=== PATIENT | male | born 1965 | race Caucasian/White ===

== ENCOUNTER 2025-05-06 06:57 | Day surgery (SDC) | payer MEDICAID ==
--- NOTE | 2025-05-01 10:56 | ELECTROCARDIOGRAPH REPORT ---
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 Kelton Ley Measurements Intervals [place] Rate: 79 P: 87 [place]: 184 QRS: 102 QRSD: 101 T: 59 QT: 374 QTc: 429 Interpretive Statements Sinus rhythm Right axis deviation Electronically Signed On 05-02-2025 6:01:[address] Kelton Ley Please click the below link to view image of tracing.
[2025-05-01 11:18] LABS: BASOPHILS # (AUTO) 0.1 X10'3 (0-0.2); BASOPHILS % (AUTO) 1.2 % (0-1); EOSINOPHILS # (AUTO) 0.2 X10'3 (0-0.9); EOSINOPHILS % (AUTO) 1.9 % (0-6); LYMPHOCYTES # (AUTO) 1.2 X10'3 (1.1-4.8); LYMPHOCYTES % (AUTO) 14.1 % (21-51); MEAN CORPUSCULAR HEMOGLOBIN 30.5 PG (27.0-31.0); MEAN CORPUSCULAR HGB CONC 34.6 g/dL (33.0-36.5); MEAN PLATELET VOLUME 8.6 FL (7.4-10.4); MONOCYTES # (AUTO) 0.5 X10'3 (0-0.9); MONOCYTES % (AUTO) 5.7 % (2-12); NEUTROPHILS # (AUTO) 6.6 X10'3 (1.8-7.7); NEUTROPHILS % (AUTO) 77.1 % (42-75); PRE OP HEMATOCRIT 49.5 % (42.0-52.0); PRE OP HEMOGLOBIN 17.1 g/dL (14.0-17.9); PRE OP PLATELET COUNT 203 X10'3 (140-440); PRE OP WHITE BLOOD COUNT 8.5 10'3 (4.8-10.8); RED BLOOD COUNT 5.63 X10'6 (4.70-6.10); RED CELL DISTRIBUTION WIDTH 14.5 % (11.5-14.5)
[2025-05-01 11:33] LABS: ALBUMIN 3.9 G/DL (3.4-5.0); ALKALINE PHOSPHATASE 87 IU/L (46-116); BLOOD UREA NITROGEN 12 MG/DL (7-18); BUN/CREATININE RATIO 9.8 (10.0-20.0); CALCIUM 8.8 MG/DL (8.5-10.1); CREATININE 1.23 MG/DL (0.60-1.10); PRE OP ALT 24 U/L (30-65); PRE OP AST 23 U/L (10-37); PRE OP BILIRUB, TOTAL 0.4 MG/DL (0.0-1.0); PRE OP GLUCOSE 159 MG/DL (70-104); PRE OP SODIUM 136 MMOL/L (135-145); TOTAL CARBON DIOXIDE 25.1 MMOL/L (24-32); TOTAL PROTEIN 7.7 G/DL (6.4-8.2); eGFR 60 ML/MIN
[2025-05-01 11:48] LABS: CHLORIDE 101 MMOL/L (99-107); PRE OP ANION GAP 10 (8-16); PRE OP POTASSIUM 3.9 MMOL/L (3.4-5.1)
[2025-05-06] VITALS (7 sets, daily range): BP systolic 81–146; BP diastolic 46–63; PULSE 70–82; RESP 11–17; TEMP 98.4; O2SAT 94–97
[~2025-05-06] VITALS: Ht 177.8 cm; Wt 114.0 kg
[~2025-05-06 06:57] MED LIST: EMPA25TA PO; FLUT16SP26 NAS; HYDR50TA4 PO; IBUP-1985 PO; INSU100V49 SQ; LANTUS SUBCUT; LISI20TA28 PO; LORA10TA7 PO; MELO-102 PO; METO-411 PO; MOME13HF11 INH; OMEP20CA16 PO; SIMV-45 PO; SULF1TAB45 PO; TAMS-55 PO; TIRZ2.5P SQ
[2025-05-06] MEDS: ceFAZolin 2gm/dext,iso 50mL 50 ML IV ONE (07:46)
[2025-05-06] MEDS: DOCUMENT DATE & TIME OF BETA-BLOCKER PO ONE (07:46)
[2025-05-06] MEDS: famotidine 20mg tablet PO ONE (07:47)
[2025-05-06] MEDS: ringers solution, lacted 1,000 ML IV SCH (07:48)
[2025-05-06] MEDS ORDERED: BUPIVAcaine/PF 2.5mg/ml (0.25%) 10ml vial ONE (07:55)
[2025-05-06] MEDS ORDERED: LIDOcaine 2% (20mg/ml) 5ml vial ONE (07:55)
[2025-05-06] MEDS ORDERED: fentaNYL/PF 50MCG/1 ML 2ML syringe ONE (08:19)
[2025-05-06] MEDS ORDERED: midazolam 1 mg/ML 2ml injection ONE ×2 (08:20→08:55)
[2025-05-06] MEDS ORDERED: propofol inj 20 ML IV ONE (09:00)
--- NOTE | 2025-05-06 11:53 | OPERATIVE REPORT ---
Operative Report Providers to ~ Date of Procedure: May 06, 2025 Pre-Operative Diagnosis: Left wrist carpal tunnel syndrome Post-Operative Diagnosis SAME as PRE-Op Procedure Performed Left wrist endoscopic carpal tunnel release Surgeon: Efren Rizo MD Rn Telehealth None Anesthesiologist: Gerardo Burgos Type of Anesthesia: Other (Local anesthetic with sedation) Findings: Estimated Blood Loss: None Specimen Removed: None Description of Procedure: The patient is a 59-year-old man with carpal tunnel syndrome refractory to nonsurgical treatment. Surgery is indicated to relieve symptoms. Risks and benefits were discussed with the patient. Some of the risks include but are not limited to infection, bleeding, nerve or vessel damage and incomplete relief of symptoms. He agreed to proceed. In the operating room the arm was prepped and draped in usual manner. Proper time-out procedure was observed. Local anesthetic was infiltrated proximal to the wrist crease. The tourniquet was elevated on the forearm. A transverse incision was made at the wrist crease ulnar to palmaris longus. A distally based U shaped flap was raised the forearm fascia and the scope was placed in the carpal canal in line with the ring finger. The cutting blade was deployed up against the underside of the distal end of the ligament and the scope was drawn proximally. The ligament was divided at this point. The scope was removed and the flap was excised. The fascia proximal to the incision was divided a short distance. Nerve was decompressed and the incision was then irrigated and closed with nylon suture. A sterile dressing was then applied and the tourniquet was released. The hand perfused well and he was taken to the recovery room in stable condition. EFREN RIZO Jr., MD May 06, 2025 11:53
== END 2025-05-06 10:06 | disposition home or self-care (01) ==
LOC: PAS 06:57
PROVIDERS: ATTEND Orthopaedic Surgery Hand Surgery
DX: G56.02 Carpal tunnel syndrome, left upper limb (principal); J44.9 Chronic obstructive pulmonary disease, unspecified; E78.5 Hyperlipidemia, unspecified; K21.9 Gastro-esophageal reflux disease without esophagitis; E11.22 Type 2 diabetes mellitus with diabetic chronic kidney disease; I12.9 Hypertensive chronic kidney disease with stage 1 through stage 4 chronic kidney disease, or unspecified chronic kidney disease; N18.9 Chronic kidney disease, unspecified; G43.909 Migraine, unspecified, not intractable, without status migrainosus; Z79.899 Other long term (current) drug therapy; Z87.891 Personal history of nicotine dependence
CPT/HCPCS: 29848; 36415; 80053; 82948; 85025; 93005; J2003; J2250; J2704; J3010; J3490; J7030; J7120; Z7506; Z7512; A4215; A6449; A7000

== ENCOUNTER 2025-05-27 08:48 | Day surgery (SDC) | payer MEDICAID ==
[~2025-05-27] VITALS: Ht 177.8 cm; Wt 115.1 kg
[2025-05-27] MEDS: ringers solution, lacted 1,000 ML IV SCH (05:30)
[2025-05-27] MEDS: ceFAZolin 2gm/dext,iso 50mL 50 ML IV ONE (05:30)
[2025-05-27] MEDS: DOCUMENT DATE & TIME OF BETA-BLOCKER PO ONE (05:30)
[2025-05-27] MEDS: famotidine 20mg tablet PO ONE (05:30)
[~2025-05-27 08:48] MED LIST changes: +BUPIVAcaine/PF 2.5mg/ml (0.25%) 10ml vial ONE; +LIDOcaine 2% (20mg/ml) 5ml vial ONE; -MOME13HF11 INH; +MOME13HF9 INH
[2025-05-27 08:55] VITALS: BP 142/79; PULSE 82; RESP 16; TEMP 97.8; O2SAT 97
[2025-05-27] MEDS: dextrose 5%-lactated ringers 1,000 ML IV SCH (09:57)
[2025-05-27] MEDS ORDERED: LIDOcaine 0.5% (5mg/ml) 50ml vial ONE (10:19)
[2025-05-27 10:57] VITALS: BP 128/83; PULSE 70; RESP 16; O2SAT 96
[2025-05-27 11:00] VITALS: BP 130/85; PULSE 72; RESP 15; O2SAT 95
[2025-05-27] MEDS: BUPIVAcaine/PF 2.5mg/ml (0.25%) 10ml vial IJ ONE (11:01)
[2025-05-27 11:10] VITALS: BP 131/87; PULSE 71; RESP 14; O2SAT 98
[2025-05-27 11:20] VITALS: BP 150/80; PULSE 73; RESP 19; O2SAT 97
[2025-05-27 11:30] VITALS: BP 125/78; PULSE 74; RESP 11; O2SAT 96
--- NOTE | 2025-05-27 16:11 | OPERATIVE REPORT ---
Operative Report Providers to ~ Date of Procedure: May 27, 2025 Pre-Operative Diagnosis: Rupture right thumb extensor pollicis longus tendon Post-Operative Diagnosis SAME as PRE-Op Procedure Performed Tendon transfer right extensor indices proprius to right thumb extensor pollicis longus Surgeon: Efren Rizo MD Heavy Equipment Supervisor None Anesthesiologist: Gatito Santana Type of Anesthesia: Regional Findings: Estimated Blood Loss: None Specimen Removed: None Description of Procedure: The patient is a 59-year-old man who noticed the inability to extend his right thumb at some point in the recent past. Use interested in regaining function. Risks and benefits were discussed with the patient. Some of the risks include but are not limited to incomplete return of function. Tendon rupture and chronic pain along with nerve and vessel damage. He agreed to proceed. He was given a block in the operating room and the arm was prepped and draped in usual manner. The 1st incision was made over the thumb metacarpal and we found the extensor pollicis longus was ruptured at the mid metacarpal level. There was retraction of the proximal edges in repair was impossible. A 2nd incision was made over the index MCP joint where the extensor indices proprius was identified and transected just proximal to the metacarpal head. It was then freed up and then brought subcutaneously into the 1st incision at the wrist level. It was then passed under the other tissues out to the thumb and repaired using a Pulvertaft weave using 4-0 FiberWire suture utilizing at least four sutures. This was done in the proper amount of tension and the tenodesis affect was good. At this point the incisions were irrigated and closed with a Prolene suture. Marcaine was injected and a sterile dressing was applied along with a plaster splint holding the thumb in full extension. The tourniquet was released the hand perfused well and he was taken to the recovery room in stable condition. He tolerated the procedure well. EFREN RIZO Jr., MD May 27, 2025 16:11
== END 2025-05-27 11:37 | disposition home or self-care (01) ==
LOC: PAS 08:48
PROVIDERS: ATTEND Orthopaedic Surgery Hand Surgery
DX: S66.211A Strain of extensor muscle, fascia and tendon of right thumb at wrist and hand level, initial encounter (principal); J44.9 Chronic obstructive pulmonary disease, unspecified; G47.30 Sleep apnea, unspecified; I10 Essential (primary) hypertension; E11.9 Type 2 diabetes mellitus without complications; F12.90 Cannabis use, unspecified, uncomplicated; K21.9 Gastro-esophageal reflux disease without esophagitis; G43.909 Migraine, unspecified, not intractable, without status migrainosus; Z87.891 Personal history of nicotine dependence; E78.5 Hyperlipidemia, unspecified; X58.XXXA Exposure to other specified factors, initial encounter; Y93.89 Activity, other specified; Y92.89 Other specified places as the place of occurrence of the external cause; Y99.8 Other external cause status; Z79.899 Other long term (current) drug therapy; Z98.890 Other specified postprocedural states
CPT/HCPCS: 26480; 82948; J0690; J2003; J3490; J7030; J7120; J7121; Z7506; Z7512; A4215; A4618; A6449; A7000